=== PATIENT | female | born 1955 | race Caucasian/White ===

== ENCOUNTER 2017-06-10 21:50 | Inpatient (IN) | payer OTHER, MEDICAID ==
[~2017-06-10] VITALS: Ht 157.5 cm; Wt 79.1 kg
[~2017-06-10 21:50] MED LIST: APR10 PO; ASPIR 8181 MG PO; ASPIRIN ADULT L81 M4; BUMETANIDE1 MG; BUMETANIDE1 MG PO; CARVEDILOL3.125 M1; CLEOCIN HCL300 MG PO; CLONIDINE HCL0.2 MG PO; CLOPIDOGREL75 M1; COR6 PO; FER300 PO; LANTUS SOLOS100 U/M1; LANTUS SOLOS100 U/M1 SQ; LEVAQUIN750 MG PO; LIPITOR80 MG PO; LISINOPRIL40 MG; LISINOPRIL40 MG PO; MAC100 PO; MAG PO; NOR10 PO; PENTOXIFYL XR400 M1 PO; PENTOXIFYLLINE400 MG; PHOS PO; PLA75; PRI20 PO; PRILOSEC OTC20 M1 PO; PRO10I SQ; TRICOR48 M1 PO; VIT B-6100 M1 PO; VITC PO
[2017-06-10 22:12] VITALS: Ht 157.5 cm; Wt 79.1 kg
[2017-06-10] MEDS ORDERED: ATORVASTATIN CA40 M1 PO (22:20)
[2017-06-10] MEDS ORDERED: CARVEDILOL25 M1 PO (22:21)
[2017-06-10] MEDS ORDERED: HYDRALAZINE HY100 MG PO (22:21)
[2017-06-10] MEDS ORDERED: RENA-VITE RX1 TAB PO (22:22)
[2017-06-10] MEDS ORDERED: BRILINTA90 M1 PO (22:22)
[2017-06-10] MEDS ORDERED: ZESTRIL5 MG PO (22:23)
[2017-06-10 23:21] LABS: BASOPHIL % 0.8 % (0-2); PLATELET COUNT 216 x10^3mcL (130-400)
[2017-06-10 23:22] LABS: RED CELL DISTRIBUTION WIDTH 15.5 % (11.5-14.5)
[2017-06-10 23:37] LABS: ALBUMIN 3.4 g/dL (3.4-5.0); BILIRUBIN TOTAL 0.36 mg/dL (0.20-1.00); CALCIUM 9.1 mg/dL (8.5-10.1); POTASSIUM SERUM 3.6 mmol/L (3.5-5.1); TOTAL PROTEIN, SERUM 7.2 g/dL (6.4-8.2)
[2017-06-10 23:41] LABS: CREATININE SERUM 6.4 mg/dL (0.6-1.0)
[2017-06-11 01:07] VITALS: BP 155/86
[2017-06-11 01:16] LABS: CHOLESTEROL/HDL RATIO 3.7; MAGNESIUM 2.2 mg/dL (1.8-2.4); PHOSPHOROUS 6.7 mg/dL (2.5-4.9)
[2017-06-11 01:19] LABS: T3 TOTAL 1.13 ng/mL
[2017-06-11 01:24] LABS: FREE T4 1.28 ng/dL (0.76-1.46); FREE THYROXINE INDEX 3.5 ug/dL (1.4-4.5); T4(THYROXINE) 9.8 ug/dL (4.7-13.3)
[2017-06-11 06:38] VITALS: BP 113/37
[2017-06-11 07:00] LABS: BASOPHIL % 0.9 % (0-2); PLATELET COUNT 213 x10^3mcL (130-400)
[2017-06-11 07:01] LABS: RED CELL DISTRIBUTION WIDTH 15.4 % (11.5-14.5)
[2017-06-11 07:48] LABS: CALCIUM 8.7 mg/dL (8.5-10.1); CARBON DIOXIDE 29.4 mmol/L (21-32); POTASSIUM SERUM 3.4 mmol/L (3.5-5.1)
[2017-06-11 08:59] LABS: CREATININE SERUM 6.6 mg/dL (0.6-1.0)
[2017-06-11 09:26] VITALS: BP 126/87
[2017-06-11 12:49] VITALS: BP 134/65
[2017-06-11 17:21] VITALS: BP 143/75
[2017-06-11] MEDS ORDERED: PRI20 PO (18:00)
[2017-06-11] MEDS ORDERED: HEP5I IV (18:01)
[2017-06-11 18:16] VITALS: BP 143/75
== END 2017-06-11 19:23 | disposition short-term general hospital (02) | DRG 205 ==
LOC: ED 21:50 → DU 23:53
PROVIDERS: Emergency Medicine; Family Medicine
DX: M94.0 Chondrocostal junction syndrome [Tietze] (principal); N17.0 Acute kidney failure with tubular necrosis; N18.6 End stage renal disease; I50.43 Acute on chronic combined systolic (congestive) and diastolic (congestive) heart failure; I13.2 Hypertensive heart and chronic kidney disease with heart failure and with stage 5 chronic kidney disease, or end stage renal disease; E87.6 Hypokalemia; E83.39 Other disorders of phosphorus metabolism; E11.65 Type 2 diabetes mellitus with hyperglycemia; E11.51 Type 2 diabetes mellitus with diabetic peripheral angiopathy without gangrene; E11.22 Type 2 diabetes mellitus with diabetic chronic kidney disease; I25.10 Atherosclerotic heart disease of native coronary artery without angina pectoris; D63.1 Anemia in chronic kidney disease; E78.5 Hyperlipidemia, unspecified; Z95.5 Presence of coronary angioplasty implant and graft; Z99.2 Dependence on renal dialysis
CPT/HCPCS: 83880; 84439; J1644; J2405; J7030; Q0092

== ENCOUNTER 2017-06-16 09:03 | Inpatient (IN) | payer OTHER, MEDICAID ==
[~2017-06-16] VITALS: Ht 157.5 cm; Wt 77.3 kg
[~2017-06-16 09:03] MED LIST changes: +ATORVASTATIN CA40 M1 PO; +BRILINTA90 M1 PO; +CARVEDILOL25 M1 PO; +HEP5I IV; +HYDRALAZINE HY100 MG PO; +RENA-VITE RX1 TAB PO; +ZESTRIL5 MG PO
[2017-06-16 09:14] VITALS: Ht 157.5 cm; Wt 77.3 kg
[2017-06-16 09:50] LABS: BASOPHIL % 1.8 % (0-2); PLATELET COUNT 173 x10^3mcL (130-400)
[2017-06-16 10:18] LABS: BILIRUBIN TOTAL 0.5 mg/dL (0.20-1.00); CALCIUM 8.6 mg/dL (8.5-10.1); CARBON DIOXIDE 27.7 mmol/L (21-32); MAGNESIUM 2.4 mg/dL (1.8-2.4); POTASSIUM SERUM 4.9 mmol/L (3.5-5.1)
[2017-06-16 10:20] LABS: ALBUMIN 3.3 g/dL (3.4-5.0)
[2017-06-16 10:21] LABS: CREATININE SERUM 8.2 mg/dL (0.6-1.0)
[2017-06-16 10:29] LABS: UA SPECIFIC GRAVITY 1.025 (1.005-1.035); microscopic required? YES; urine erythrocyte TRACE (NEGATIVE)
[2017-06-16 10:38] LABS: AMPHETAMINE QUAL UR NONE DETECTED (NEG <=1000)
[2017-06-16] MEDS ORDERED: LAXATIVE5 M1 PO (12:02)
[2017-06-16] MEDS ORDERED: PRO40 PO (12:03)
[2017-06-16] MEDS ORDERED: PSYLLIUM0.4 GM PO (12:03)
[2017-06-16] MEDS ORDERED: NITROSTAT0.4 MG SL (12:03)
[2017-06-16] MEDS ORDERED: BRILINTA90 M1 PO (12:04)
[2017-06-16 12:40] LABS: T3 TOTAL 0.5 ng/mL
[2017-06-16 13:10] LABS: FREE T4 1.46 ng/dL (0.76-1.46); FREE THYROXINE INDEX 3.8 ug/dL (1.4-4.5); T4(THYROXINE) 10.1 ug/dL (4.7-13.3)
[2017-06-16 13:15] VITALS: BP 134/70
[2017-06-16 13:18] LABS: PHOSPHOROUS 5.9 mg/dL (2.5-4.9)
[2017-06-16 13:19] LABS: CHOLESTEROL/HDL RATIO 2.6
[2017-06-16 21:52] VITALS: BP 131/64
[2017-06-17 05:41] LABS: CALCIUM 8.6 mg/dL (8.5-10.1)
[2017-06-17 05:43] VITALS: BP 114/61
[2017-06-17 05:44] LABS: BASOPHIL % 0.8 % (0-2); PLATELET COUNT 174 x10^3mcL (130-400)
[2017-06-17 05:48] LABS: RED CELL DISTRIBUTION WIDTH 15.7 % (11.5-14.5)
[2017-06-17 05:50] LABS: CREATININE SERUM 5.2 mg/dL (0.6-1.0)
[2017-06-17 08:37] VITALS: BP 122/60
[2017-06-17 13:30] VITALS: BP 132/68
[2017-06-17 16:21] VITALS: BP 99/52
[2017-06-17 18:23] VITALS: BP 99/52
== END 2017-06-17 20:12 | disposition short-term general hospital (02) | DRG 291 ==
LOC: ED 09:03 → DU 11:35
PROVIDERS: Emergency Medicine; Family Medicine
DX: I13.2 Hypertensive heart and chronic kidney disease with heart failure and with stage 5 chronic kidney disease, or end stage renal disease (principal); N18.6 End stage renal disease; G93.41 Metabolic encephalopathy; I50.43 Acute on chronic combined systolic (congestive) and diastolic (congestive) heart failure; N17.0 Acute kidney failure with tubular necrosis; E87.1 Hypo-osmolality and hyponatremia; E44.0 Moderate protein-calorie malnutrition; E11.22 Type 2 diabetes mellitus with diabetic chronic kidney disease; D64.9 Anemia, unspecified; I25.10 Atherosclerotic heart disease of native coronary artery without angina pectoris; E66.9 Obesity, unspecified; E78.00 Pure hypercholesterolemia, unspecified; E83.39 Other disorders of phosphorus metabolism; Z90.710 Acquired absence of both cervix and uterus; Z90.49 Acquired absence of other specified parts of digestive tract; Z83.3 Family history of diabetes mellitus; Z82.49 Family history of ischemic heart disease and other diseases of the circulatory system; Z68.30 Body mass index [BMI] 30.0-30.9, adult; Z99.2 Dependence on renal dialysis
CPT/HCPCS: 83880; 84439; 97530-GP; J0885-EC; J1644; J7030; Q0092